=== PATIENT | female | born 1975 | race Caucasian/White ===

== ENCOUNTER 2021-02-01 14:16 | Emergency (ER) | payer SELFPAY ==
[~2021-02-01] VITALS: Ht 154.9 cm; Wt 73.0 kg
[~2021-02-01 14:16] MED LIST: ALBU0.63 IH; ALBU2.5V8 IH; CELE50CA PO; CYCL10TA2 PO; GABA300C18 PO; IBUP-1060 PO; PHEN100C PO; PHEN30CA PO
[2021-02-01 15:51] VITALS: BP 126/74
[2021-02-01] MEDS ORDERED: PHENYLEPHRINE 0.5% NASAL SPRAY 15ML BOTTLE. NS ONE (16:00)
--- NOTE | 2021-02-01 16:58 | ED.ADGEN ---
Past Medical History Past Medical History: Anxiety, Seizure, Other Additional Past Medical Histor: PTSD, panic attacks, ETOH and Drug abuse Past Surgical History: Other Additional Past Surgical Histo: brain, mastoid Smoking Status: Former Smoker Alcohol Use: None Drug Use: None General Adult EDM: Chief Complaint: EARACHE/EAR PAIN HPI: HPI: Patient is a 45 year old female who presents emergency department with complaints of left ear fullness and a knot behind her left ear. Patient reports concern because she had mastoiditis of this ear proximally 10 years ago. She denies any drainage, bleeding, or or decreased hearing of her left ear. She states that the symptoms began 2 days ago. She denies any injury or trauma to her ear. Patient denies any fever, cough, body aches, nasal congestion, headaches, sneezing, sore throat, wheezing, shortness of breath, chest pain, abdominal pain, nausea, vomiting, or diarrhea. She currently rates pain a 10 out of 10 on pain scale, she denies any alleviating factors. She denies any dizziness or syncope. Review of Systems: Review of Systems: Complete ROS is negative unless otherwise noted in HPI. Current Medications: Current Medications Medications (Trade) Dose Ordered Sig/Brittney Start Time Stop Time Status Last Admin Dose Admin Phenylephrine HCl (Tay-Synephrine 0.5% Nasal) 2 spray 1X ONCE 02/01/21 16:00 02/01/21 16:01 DC 02/01/21 16:16 2 SPRAY Allergies: Allergies: Allergies Coded Allergies Type Severity Reaction Last Updated Verified ceftriaxone sodium Allergy Severe Anaphylaxis 04/26/14 Yes morphine Allergy Severe Palpitations 04/26/14 Yes prochlorperazine edisylate Allergy Severe Palpitations 04/26/14 Yes prochlorperazine maleate Allergy Severe Palpitations 04/26/14 Yes Sulfa (Sulfonamide Antibiotics) Allergy Intermediate rash 04/26/14 Yes codeine Allergy Intermediate Rash, Tolerates Percocet 06/19/14 Yes ketorolac tromethamine Allergy Intermediate Anxiety 06/19/14 Yes tramadol HCl Allergy Intermediate Itching 04/26/14 Yes Physical Exam: PE: See Above Constitutional: Well developed, well nourished, no acute distress, non-toxic appearance. [] HENT: Normocephalic, atraumatic, bilateral external ears normal, bilateral TMs normal, nose normal; tenderness to palpation of the left mastoid without erythema, or warmth, no edema of this area. [] Eyes: PERRLA, EOMI, conjunctiva normal, no discharge. [] Neck: Normal range of motion, supple, nontender, no stridor. [] Cardiovascular:Heart rate regular rhythm Lungs & Thorax: Respirations even and unlabored, no retractions, no respiratory distress Skin: Warm, dry, no erythema, no rash. [] Extremities: No cyanosis, ROM intact, no edema. [] Neurologic: Alert and oriented X 3, normal motor, normal sensory, no focal deficits noted. [] Psychologic: Affect normal, judgement normal, mood anxious Current Patient Data: Vital Signs: Vital Signs Date Time Temp Pulse Resp B/P (MAP) Pulse Ox O2 Delivery O2 Flow Rate FiO2 02/01/21 15:51 98.5 67 126/74 (91) 98 98.5 02/01/21 15:42 20 Room Air EKG: EKG: [] Heart Score: C/O Chest Pain: No Risk Scores: Score 0 - 3: 2.5% MACE over next 6 weeks - Discharge Home Score 4 - 6: 20.3% MACE over next 6 weeks - Admit for Clinical Observation Score 7 - 10: 72.7% MACE over next 6 weeks - Early Invasive Strategies Radiology/Procedures: Radiology/Procedures: [] Course & Med Decision Making: Course & Med Decision Making Pertinent Labs and Imaging studies reviewed. (See chart for details) Patient presented to the emergency department with complaints of pressure in her left ear pain behind her left ear for 2 days. Physical exam did not reveal any otitis media, or suppurative otitis. There was no erythema, warmth, or swelling to the mastoid process. Patient was afebrile. Patient was given nasal Afrin with some mild decrease in her symptoms. Advised patient that she is likely suffering from eustachian tube dysfunction encouraged her to take a daily antihistamine or decongestant after that effect her symptoms. Instructed her to follow-up with her doctor for repeat evaluation in 1 to 2 days, return to the ER if symptoms worsen before develop. Patient verbalized an understanding of home care, medications, follow-up, and return to ED instructions and was in agreement with the plan of care. [] Luly Disclaimer: Luly Disclaimer: This electronic medical record was generated, in whole or in part, using a voice recognition dictation system. Departure Departure Impression: Primary Impression: Eustachian tube dysfunction Additional Impression: Sensation of fullness in left ear Disposition: 01 DC HOME SELF CARE/HOMELESS Condition: STABLE Referrals: NO PCP (PCP) Patient Instructions: Otalgia-Brief Additional Instructions: You can try taking an antihistamine or daily nasal decongestant for relief of the pressure in your left ear. Follow-up with your primary care doctor in the next 1 to 2 days, return to the ER if symptoms worsen or you develop a fever. Problem Qualifiers Primary Impression: Eustachian tube dysfunction Laterality: left Qualified Codes: H69.82 - Other specified disorders of eustachian tube, left ear ELIZABETH HARVEY FLANGE TURNER Feb 01, 2021 16:57
== END 2021-02-01 17:15 | disposition home or self-care (01) ==
LOC: ER 14:16
DX: H69.82 Other specified disorders of Eustachian tube, left ear (principal); F43.10 Post-traumatic stress disorder, unspecified; Z87.891 Personal history of nicotine dependence; Z88.1 Allergy status to other antibiotic agents; Z88.5 Allergy status to narcotic agent; Z88.2 Allergy status to sulfonamides; Z88.6 Allergy status to analgesic agent; Z88.8 Allergy status to other drugs, medicaments and biological substances
CPT/HCPCS: 99282

== ENCOUNTER 2021-07-03 12:21 | Emergency (ER) | payer SELFPAY ==
[~2021-07-03] VITALS: Ht 157.5 cm; Wt 77.3 kg
[~2021-07-03 12:21] MED LIST changes: +ALBU2.5V8 INH; +CHLO1CAP PO; +DOCU-109 PO; +HYDR-2761 PO; +MAGN296S68 PO; +METH4TAB2 PO; +NAPR-683 PO; +ONDA4TAB7 PO
[2021-07-03] MEDS ORDERED: KETOROLAC 30 MG/ML VIAL. IVP ONE (13:00)
[2021-07-03] MEDS ORDERED: diphenhydrAMINE 50 MG/ML VIAL IVP ONE (13:00)
[2021-07-03] MEDS ORDERED: DEXAMETHASONE SOD PHOS 20 MG/5 ML VIAL. IV ONE (13:00)
[2021-07-03] MEDS ORDERED: ONDANSETRON PF 4 MG/2 ML VIAL. IVP ONE (13:30)
--- NOTE | 2021-07-03 13:45 | PHYS DOC ---
Past Medical History Past Medical History: Asthma, Ovarian Cyst, Seizure, Other Additional Past Medical Histor: BRAIN TUMOR; Drugs & Alcohol abuse/SOBER 18 MONTHS, plantar fasciitis Past Surgical History: Cholecystectomy, , Other Additional Past Surgical Histo: MASTOID;brain sx;ovarian cyst Smoking Status: Former Smoker Alcohol Use: None Additional Information: SOBER 18 MONTHS Drug Use: None Social History Narrative: CLEAN & SOBER 18 MONTHS General Adult EDM: Chief Complaint: HEADACHE HPI: HPI: Patient is a 46 year old female who presents with headache since last Sunday after her mother . She states headache is gotten worse and she is having light sensitivity. She states that she has had tension headaches before. Patient states she does have some nausea. Patient took Tylenol and Aleve 1 hour prior to arriving. Patient states the headache wraps around kind of like a band on her head. She is sober from drugs and alcohol for 18 months. She has not been vaccinated for Covid. She has a history of brain tumor with surgery, asthma, plantar fasciitis, seizures, cholecystectomy, mastoid surgery, ovarian cyst. She is rating her pain a 9 out of 10 at this time. Patient denies chest pain, fever, neck stiffness, vision loss, shortness of breath, cough, vomiting, diarrhea, abdominal pain, recent illness, nasal congestion, focal weakness, numbness or tingling, dizziness, syncope, fall or trauma to her head. Review of Systems: Review of Systems: Constitutional: Denies fever or chills. [] Eyes: Denies change in visual acuity. + Light sensitivity [] HENT: Denies nasal congestion or sore throat. [] Respiratory: Denies cough or shortness of breath. [] Cardiovascular: Denies chest pain or edema. [] GI: Denies abdominal pain, +nausea, denies vomiting, bloody stools or diarrhea. [] : Denies dysuria. [] Musculoskeletal: Denies back pain or joint pain. [] Integument: Denies rash. [] Neurologic: + headache, denies focal weakness or sensory changes. [] Endocrine: Denies polyuria or polydipsia. [] Lymphatic: Denies swollen glands. [] Psychiatric: Denies depression or anxiety. [] Heart Score: C/O Chest Pain: No Risk Factors: Risk Factors: DM, Current or recent (<one month) smoker, HTN, HLP, family history of CAD, obesity. Risk Scores: Score 0 - 3: 2.5% MACE over next 6 weeks - Discharge Home Score 4 - 6: 20.3% MACE over next 6 weeks - Admit for Clinical Observation Score 7 - 10: 72.7% MACE over next 6 weeks - Early Invasive Strategies Current Medications: Current Medications Medications (Trade) Dose Ordered Sig/Brittney Start Time Stop Time Status Last Admin Dose Admin Dexamethasone Sodium Phosphate (Decadron) 10 mg 1X ONCE 07/03/21 13:00 07/03/21 13:01 DC Diphenhydramine HCl (Benadryl) 25 mg 1X ONCE 07/03/21 13:00 07/03/21 13:01 DC Ketorolac Tromethamine (Toradol 30mg Vial) 30 mg 1X ONCE 07/03/21 13:00 07/03/21 13:01 DC Ondansetron HCl (Zofran) 4 mg 1X ONCE 07/03/21 13:30 07/03/21 13:31 DC Allergies: Allergies: Allergies Coded Allergies Type Severity Reaction Last Updated Verified ceftriaxone Allergy Severe Anaphylaxis 05/31/21 Yes ceftriaxone sodium Allergy Severe Anaphylaxis 04/26/14 Yes morphine Allergy Severe Palpitations 04/26/14 Yes prochlorperazine edisylate Allergy Severe Palpitations 04/26/14 Yes prochlorperazine maleate Allergy Severe Palpitations 04/26/14 Yes Sulfa (Sulfonamide Antibiotics) Allergy Intermediate rash 04/26/14 Yes codeine Allergy Intermediate Rash, Tolerates Percocet 06/19/14 Yes prochlorperazine Allergy Intermediate hives 05/31/21 Yes tramadol HCl Allergy Intermediate Itching 04/26/14 Yes Physical Exam: PE: Constitutional: Well developed, well nourished, no acute distress, non-toxic appearance. [] HENT: Normocephalic, atraumatic, bilateral external ears normal, oropharynx moist, no oral exudates, nose normal. [] Eyes: PERRLA, EOMI, conjunctiva normal, no discharge. Light sensitivity. [] Neck: Normal range of motion, no tenderness, supple, no stridor. [] Cardiovascular:Heart rate regular rhythm, no murmur [] Lungs & Thorax: Bilateral breath sounds clear to auscultation [] Abdomen: Bowel sounds normal, soft, no tenderness, no masses, no pulsatile masses. [] Skin: Warm, dry, no erythema, no rash. [] Back: No tenderness, no CVA tenderness. [] Extremities: No tenderness, no cyanosis, no clubbing, ROM intact, no edema. [] Neurologic: Alert and oriented X 3, normal motor function, normal sensory function, no focal deficits noted. [] Psychologic: Affect normal, judgement normal, mood normal. [] Current Patient Data: Vital Signs: Vital Signs Date Time Temp Pulse Resp B/P (MAP) Pulse Ox O2 Delivery O2 Flow Rate FiO2 07/03/21 12:27 98.8 72 134/68 (96) Room Air 98.8 EKG: EKG: [] Radiology/Procedures: Radiology/Procedures: [] Impression: [facility] [address] [place] [address] IMAGING REPORT Signed PATIENT: KAYLEE THOMAS DAWNACCOUNT: [id number] : 1975 LOCATION: ER AGE: 46 SEX: F EXAM STATUS: REG ER ORD. PHYSICIAN: MANUELITO DUTTA APRN REASON: HEADACHE PROCEDURE: CT HEAD WO CONTRAST Exam performed: CT scan of the head without contrast. Date of Service: 07/03/2021. Comparison: CT head without contrast from 01/20/2014. Clinical History: Headache. Technique: Helical acquisitions are obtained from the foramen magnum to the vertex without intravenous administration of contrast. Findings: The ventricles are midline without evidence of dilatation. Normal dawn-white differentiation is maintained. A subtle area of low-attenuation in the left t emporal lobe is unchanged since prior CT scan from 2013. There is no extra axial fluid collection, intraparenchymal hemorrhage or mass lesion. The visualized portions of the orbits, paranasal sinuses and the mastoid air cells appear clear. The calvarium is intact. Impression: 1. No acute intracranial process detected. PQRS Compliance Statement: One or more of the following individualized dose reduction techniques were utilized for this examination: 1. Automated exposure control 2. Adjustment of the mA and/or kV according to patient size 3. Use of iterative reconstruction technique Electronically signed by: Mimi Dolan MD (07/03/2021 2:36 PM) [facility] DICTATED and SIGNED BY: MIMI DOLAN MD DATE: 07/03/21 [id number] 0 Course & Med Decision Making: Course & Med Decision Making Pertinent Labs and Imaging studies reviewed. (See chart for details) See HPI. Alert and oriented x4. Ambulatory with steady gait. Speaks in full clear sentences. Skin pink warm and dry. PERRLA. No nuchal rigidity. Afebrile. Vital signs within normal limits. Denies any vision loss. After dexamethasone, Zofran, Benadryl she states she is feeling better. Patient follow-up with her primary care doctor. [] Dragon Disclaimer: Dragon Disclaimer: This electronic medical record was generated, in whole or in part, using a voice recognition dictation system. Departure Departure Impression: Primary Impression: Headache Qualified Codes: R51.9 - Headache, unspecified Disposition: HOME / SELF CARE / HOMELESS Condition: STABLE Referrals: ENRRIQUE WOODALL JR, MD (PCP) Patient Instructions: General Headache Without Cause, Tension Headache Additional Instructions: Follow-up with your primary care doctor. Take medication as prescribed and with food. If anything worsens or you begin having weakness to 1 side of your body or numbness and tingling return emergency room. MANUELITO DUTTA APRN Jul 03, 2021 13:45
[2021-07-03 13:46] LABS: U PREG PATIENT NEGATIVE (NEG)
[2021-07-03 13:48] LABS: BILIRUBIN,URINE NEGATIVE (NEG); CLARITY,URINE HAZY; COLOR,URINE YELLOW; NITRITE,URINE NEGATIVE (NEG); PH,URINE 5.5 (<5.0-8.0); PROTEIN,URINE NEGATIVE (NEG-TRACE); UROBILINOGEN,URINE 0.2 mg/dL (0.2 mg/dL)
[2021-07-03 13:52] LABS: BACTERIA,URINE 0 /HPF (0-FEW); RBC,URINE >40 /HPF (0-2); WBC,URINE 0 /HPF (0-4)
--- NOTE | 2021-07-03 14:38 | RAD ---
Exam performed: CT scan of the head without contrast. Date of Service: 07/03/2021. Comparison: CT head without contrast from 01/20/2014. Clinical History: Headache. Technique: Helical acquisitions are obtained from the foramen magnum to the vertex without intravenou s administration of contrast. Findings: The ventricles are midline without evidence of dilatation. Normal dawn-white differentiation is maint ained. A subtle area of low-attenuation in the left temporal lobe is unchanged since prior CT scan fr om 2013. There is no extra axial fluid collection, intraparenchymal hemorrhage or mass lesion. The v isualized portions of the orbits, paranasal sinuses and the mastoid air cells appear clear. The calv arium is intact. Impression: 1. No acute intracranial process detected. PQRS Compliance Statement: One or more of the following individualized dose reduction techniques were utilized for this examinat ion: 1. Automated exposure control 2. Adjustment of the mA and/or kV according to patient size 3. Use of iterative reconstruction technique Electronically signed by: Mimi Dolan MD (07/03/2021 2:36 PM) [facility]
[2021-07-03 15:11] VITALS: BP 102/56
== END 2021-07-03 15:17 | disposition home or self-care (01) ==
LOC: ER 12:21
DX: R51.9 Headache, unspecified (principal); J45.909 Unspecified asthma, uncomplicated; Z87.891 Personal history of nicotine dependence; Z88.1 Allergy status to other antibiotic agents; Z88.5 Allergy status to narcotic agent; Z88.2 Allergy status to sulfonamides; Z88.6 Allergy status to analgesic agent; Z88.8 Allergy status to other drugs, medicaments and biological substances
CPT/HCPCS: 70450; 81001; 81025; 96374; 96375; 99285; J1100; J1200; J1885; J2405

== ENCOUNTER 2021-07-20 12:14 | Emergency (ER) | payer SELFPAY ==
[~2021-07-20] VITALS: Ht 157.5 cm; Wt 68.0 kg
[2021-07-20] MEDS ORDERED: predniSONE 20 MG TABLET PO ONE (13:15)
--- NOTE | 2021-07-20 13:17 | PHYS DOC ---
Past Medical History Past Medical History: Asthma, Ovarian Cyst, Seizure, Other Additional Past Medical Histor: BRAIN TUMOR; Drugs & Alcohol abuse/SOBER 18 MONTHS, plantar fasciitis Past Surgical History: Cholecystectomy, , Other Additional Past Surgical Histo: MASTOID;brain sx;ovarian cyst Smoking Status: Former Smoker Alcohol Use: None Drug Use: None General Adult EDM: Chief Complaint: SHORTNESS OF BREATH HPI: HPI: Patient is a 46 year old female with a history of asthma who presents to the ED today complaining of cough, nasal congestion, and wheezing symptoms began 2 days ago. Patient states she went to drug court today and they request that she comes to the ED to be evaluated. Patient is unvaccinated against COVID-19. Review of Systems: Review of Systems: Constitutional: Denies fever or chills. [] Eyes: Denies change in visual acuity. [] HENT: Reports nasal congestion, denies sore throat. [] Respiratory: Reports cough and wheezing, denies shortness of breath. [] Cardiovascular: Denies chest pain or edema. [] GI: Denies abdominal pain, nausea, vomiting, bloody stools or diarrhea. [] : Denies dysuria. [] Musculoskeletal: Denies back pain or joint pain. [] Integument: Denies rash. [] Neurologic: Denies headache, focal weakness or sensory changes. [] ] Psychiatric: Denies depression or anxiety. [] Heart Score: C/O Chest Pain: N/A Risk Factors: Risk Factors: DM, Current or recent (<one month) smoker, HTN, HLP, family history of CAD, obesity. Risk Scores: Score 0 - 3: 2.5% MACE over next 6 weeks - Discharge Home Score 4 - 6: 20.3% MACE over next 6 weeks - Admit for Clinical Observation Score 7 - 10: 72.7% MACE over next 6 weeks - Early Invasive Strategies Allergies: Allergies: Allergies Coded Allergies Type Severity Reaction Last Updated Verified ceftriaxone Allergy Severe Anaphylaxis 05/31/21 Yes ceftriaxone sodium Allergy Severe Anaphylaxis 04/26/14 Yes morphine Allergy Severe Palpitations 04/26/14 Yes prochlorperazine edisylate Allergy Severe Palpitations 04/26/14 Yes prochlorperazine maleate Allergy Severe Palpitations 04/26/14 Yes Sulfa (Sulfonamide Antibiotics) Allergy Intermediate rash 04/26/14 Yes codeine Allergy Intermediate Rash, Tolerates Percocet 06/19/14 Yes prochlorperazine Allergy Intermediate hives 05/31/21 Yes tramadol HCl Allergy Intermediate Itching 04/26/14 Yes Physical Exam: PE: Constitutional: Well developed, well nourished, no acute distress, non-toxic appearance. [] HENT: Normocephalic, atraumatic, bilateral external ears normal, oropharynx moist, no oral exudates, sounds congested nasally Eyes: PERRLA, EOMI, conjunctiva normal, no discharge. [] Neck: Normal range of motion, no tenderness, supple, no stridor. [] Cardiovascular:Heart rate regular rhythm, no murmur [] Lungs & Thorax: Bilateral breath sounds clear to auscultation [] Abdomen: Bowel sounds normal, soft, no tenderness, no masses, no pulsatile masses. [] Skin: Warm, dry, no erythema, no rash. [] Back: No tenderness, no CVA tenderness. [] Extremities: No tenderness, no cyanosis, no clubbing, ROM intact, no edema. [] Neurologic: Alert and oriented X 3, normal motor function, normal sensory function, no focal deficits noted. [] Psychologic: Affect normal, judgement normal, mood normal. [] Current Patient Data: Labs: Laboratory Tests Test 07/20/21 13:10 POC Urine HCG, Qualitative Hcg negative (Negative) EKG: EKG: [] Radiology/Procedures: Radiology/Procedures: []PROCEDURE: CHEST AP ONLY EXAMINATION: Chest radiograph. VIEWS: Single view COMPARISON: None INDICATION:46 years, Female, cough. FINDINGS: Normal cardiomediastinal silhouette. No focal consolidation. No pleural effusion or pneumothorax. No acute osseous process. IMPRESSION: No acute cardiopulmonary process. Electronically signed by: She Keenan MD (07/20/2021 1:28 PM) [facility] DICTATED and SIGNED BY: SHE KEENAN MD DATE: 07/20/21 [id number] 0 Course & Med Decision Making: Course & Med Decision Making Pertinent Labs and Imaging studies reviewed. (See chart for details) This a 46-year-old female patient presenting to the ED today with cough, nasal congestion, wheezing symptoms for 2 days. Negative rapid Covid test, chest x-ray is negative. Discharged with albuterol inhaler, prednisone. Follow-up with the PCP in 1 to 2 weeks Luly Disclaimer: Luly Disclaimer: This electronic medical record was generated, in whole or in part, using a voice recognition dictation system. Departure Departure Impression: Primary Impression: Asthma exacerbation Qualified Codes: J45.21 - Mild intermittent asthma with (acute) exacerbation Additional Impression: Person under investigation for COVID-19 Disposition: HOME / SELF CARE / HOMELESS Condition: STABLE Referrals: ENRRIQUE WOODALL JR, MD (PCP) follow up in one week Patient Instructions: Asthma, Adult, [id number] Additional Instructions: You were evaluated in the emergency room for asthma symptoms. Your rapid Covid test is negative. You still have a pending Covid PCR test we will call you with the results when it come. Quarantine yourself until you get results from the hospital. Wear your mask around other people. Follow-up with your primary care doctor in 1 to 2 weeks Scripts Albuterol Sulfate (Proair Hfa) 8.5 Gm Hfa.aer.ad 2 PUFF IH PRN Q4-6HRS PRN for wheezing for 21 Days, #1 INHALER 0 Refills Prov: NING NAPOLES APRN 07/20/21 Prednisone (PREDNISONE) 50 Mg Tablet 1 TAB PO DAILY, #5 TAB Prov: NING NAPOLES APRN 07/20/21 NING NAPOLES APRN Jul 20, 2021 13:17
[2021-07-20 13:30] VITALS: BP 106/59
--- NOTE | 2021-07-20 13:31 | RAD ---
EXAMINATION: Chest radiograph. VIEWS: Single view COMPARISON: None INDICATION:46 years, Female, cough. FINDINGS: Normal cardiomediastinal silhouette. No focal consolidation. No pleural effusion or pneumothorax. No acute osseous process. IMPRESSION: No acute cardiopulmonary process. Electronically signed by: Sebas Keenan MD (07/20/2021 1:28 PM) [facility]
[2021-07-20] MEDS ORDERED: PRED50TA PO (13:56)
[2021-07-20] MEDS ORDERED: ALBU2.5V8 IH (13:56)
--- NOTE | 2021-07-21 10:53 | NUR ---
IP patient notified of negative COVID test result. Verbalized understanding
== END 2021-07-20 14:01 | disposition home or self-care (01) ==
LOC: ER 12:14
DX: J45.21 Mild intermittent asthma with (acute) exacerbation (principal); Z20.822 Contact with and (suspected) exposure to COVID-19; J45.909 Unspecified asthma, uncomplicated; Z87.891 Personal history of nicotine dependence
CPT/HCPCS: 71045; 81025; 87426; 99284; J7512; U0003; U0005